=== PATIENT | male | born 1965 | race Caucasian/White ===

== ENCOUNTER → 2017-07-15 | Day surgery (SDC) | payer OTHER, MEDICARE ==
[~2017-07-15] MED LIST: ALL DAY ALLERGY10 M3 PO; ALTACE10 MG PO; ASPIR 8181 MG PO; CELEXA40 MG PO; GENTAMICIN 0.1%15 G2 TOP; HYDROCODONE-AP1 EAC6 PO; LASIX 40 MG TAB40 M2 PO; LEVEMIR SUBQ; LIPITOR10 MG PO; NEURONTIN 300300 M1 PO; NOVOLOG100 UNIT/1 SUBQ; TOPROL XL25 MG PO; VELPHORO500 MG PO; VOL-CARE RX TA1 EACH PO
[2017-07-15 06:23] LABS: HEMATOCRIT 35.9 % (42.0-52.0); HEMOGLOBIN 12.1 gm/dL (14.0-18.0); MCH 31.6 pg (26.0-34.0); MCHC 33.7 g/dL (28.0-37.0); MCV 93.8 fL (80.0-100.0); MPV 8.1 fl. (7.2-11.1); RBC 3.83 mil/uL (4.50-6.00); RDW-CV 14.2 % (10.5-14.5); WBC 10.9 thou/uL (4.0-11.0)
[2017-07-15 06:26] LABS: CALCIUM 9.6 mg/dL (8.5-10.1); CREATININE 8.1 mg/dL (0.6-1.3); POTASSIUM 4.9 mmol/L (3.5-5.1)
[2017-07-15 06:31] LABS: ALBUMIN 3.7 g/dL (3.4-5.0); TOTAL BILIRUBIN 0.6 mg/dL (<0.1-1.0); TOTAL PROTEIN 7.6 g/dL (6.4-8.2)
--- NOTE | 2017-07-15 17:55 | EKG ---
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
--- NOTE | 2017-07-24 13:41 | PROC ---
[facility] [address] [place] [address] PROCEDURE REPORT Name: ISHAAN ERAZO Room: [facility].#: [id number] Admission: 07/15/17 Attend Phys: Bladimir Larson Discharge: Date of : 67 Report #: [id number] THIS REPORT FOR: //name// CC: Bladimir [facility] DATE OF SERVICE: 07/15/2017 PREOPERATIVE DIAGNOSIS: End-stage renal disease. POSTOPERATIVE DIAGNOSIS: End-stage renal disease. PROCEDURE: Removal of tunneled intraperitoneal catheter. SURGEON: Bladimir Larson MD. ANESTHESIA: General. ESTIMATED BLOOD LOSS: Minimal. DESCRIPTION OF PROCEDURE: After informed consent was obtained, the patient was brought to the operating room and placed supine. SCDs were placed and working, preoperative antibiotics were administered, general anesthesia was induced. The abdomen was prepped and draped in the usual sterile fashion. I made a counter incision measuring 1 cm over the internal cuff site in the paramedian area on the left side. Dissection was made down to the cuff, which was freed up bluntly and with electrocautery. The external cuff was then pulled out through the same incision and freed up as well. After this had been done, the catheter slid out very easily. The counter incision site was closed with a running 4-0 Monocryl. I left the exit site open with packing. Sterile dressings were applied. COMPLICATIONS: None. DISPOSITION: The patient was taken to recovery in satisfactory condition. <ELECTRONICALLY SIGNED> By: Bladimir Larson MD 07/24/17 1341 0920 [id number] Larson MD /nt
== END | disposition home or self-care (01) ==
LOC: M.SUR 05:59
PROVIDERS: Surgery
DX: Z49.02 Encounter for fitting and adjustment of peritoneal dialysis catheter (principal); N18.6 End stage renal disease; Z79.82 Long term (current) use of aspirin; Z79.899 Other long term (current) drug therapy; Z79.4 Long term (current) use of insulin; Z79.891 Long term (current) use of opiate analgesic